=== PATIENT | male | born 1975 | race Hispanic/Latino ===

== ENCOUNTER 2025-03-19 22:43 | Inpatient (IN) | payer BC, SELFPAY ==
[2025-03-19 14:38] VITALS: BP 154/91
[2025-03-19 15:03] LABS: % Basophils 1.3 % (0-2); % Eosinophils 2.2 % (0-6); % Lymphocytes 31.9 % (20.5-51.1); % Monocytes 5.2 % (1.7-9.3); % Neutrophils 58.4 % (42.2-75.2); Absolute Basophils 0.1 10^3/uL (0-0.2); Absolute Eosinophils 0.2 10^3/uL (0-0.7); Absolute Immature Granulocytes 0.1 10^3/uL (0-0.05); Absolute Lymphocytes 2.3 10^3/uL (1.2-3.4); Absolute Monocytes 0.4 10^3/uL (0.1-0.6); Absolute Neutrophils 4.2 10^3/uL (1.4-6.5); Hematocrit 43.9 % (39.0-52.0); Hemoglobin 14.9 g/dL (13.0-18.0); Mean Corp Hgb Conc. 33.9 g/dL (33.0-37.0); Mean Corpuscular Hgb 29.6 pg (27.0-31.0); Mean Corpuscular Volume 87.1 fL (80.0-94.0); Mean Platelet Volume 8.8 fL (7.4-10.4); Nucleated Red Blood Cells % 0 % (-); Platelet Count 272 10^3/uL (130-400); Red Blood Cell Count 5.04 10^6/uL (4.70-6.10); Red Cell Dist. Width 12.7 % (11.5-14.5); White Blood Cell Count 7.2 10^3/uL (4.8-10.8)
[2025-03-19 15:13] LABS: Urine Albumin 2+ (Neg - Trace); Urine Bilirubin Negative (Negative); Urine Character Clear (Clear); Urine Color Yellow; Urine Glucose Negative (Negative); Urine Ketone Negative (Negative); Urine Leukocyte Negative (Negative); Urine Nitrite Negative (Negative); Urine Occult Blood 4+ (Negative); Urine Urobilinogen Negative (Neg - 1+)
[2025-03-19 15:30] LABS: ALT (SGPT) 49 U/L (0-50); AST (SGOT) 30 U/L (17-59); Albumin 4.6 g/dl (3.5-5.0); Alkaline Phosphatase 53 U/L (38-126); Blood Urea Nitrogen 16 mg/dl (9-20); Calcium 9.8 mg/dl (8.4-10.2); Carbon Dioxide 30 mmol/L (22-30); Chloride 102 mmol/L (98-107); Glucose 109 mg/dl (70-99); Lipase 1116 U/L (23-300); Potassium 4.4 mmol/L (3.5-5.1); Sodium 142 mmol/L (135-145); Total Bilirubin 0.8 mg/dl (0.2-1.3); Total Protein 7.9 g/dl (6.3-8.2); eGFR > 60.00
[2025-03-19 15:32] LABS: Urine Squamous Cell 0-2 /LPF (Few)
[2025-03-19 15:33] LABS: Urine Red Blood Cell 80-90 /HPF (0-2); Urine White Cell 0-2 /HPF (0-5)
[2025-03-19 17:04] VITALS: BP 149/83
[2025-03-19 20:10] VITALS: BP 141/81
--- NOTE | 2025-03-19 20:39 | ED.GENMED ---
History of Present Illness
<Judie Kay NP - Last Filed: 03/19/25 22:31>
General
Chief Complaint: Flank Pain
Source: patient
Exam Limitations: none
Time Seen by Provider: 03/19/25 16:21
Nursing documentation reviewed up to this point in time: agreed with
History of Present Illness
History of Present Illness:
Patient to ED wtih complaint of bilateral flank pain. History of kidney stones, states pain is similar. Denies fever/chills, n/v/d. No difficulty passing urine Brought self to ED for eval.
Past History
<Judie Kay NP - Last Filed: 03/19/25 22:31>
Past History
ED Past Medical History: Hypercholesterolemia, Psychiatric (anxiety) and Other (kidney stones, fatty liver)
ED Past Surgical History: Urological (stents)
Social History
Tobacco: Non-smoker
Alcohol: None
Drug: Marijuana (medical)
Review of Systems
<Judie Kay NP - Last Filed: 03/19/25 22:31>
Review of Systems
Allergies reviewed?: Yes
All Other Systems: ROS reviewed and negative except as documented in HPI and ROS
Constitutional: Reports no symptoms
EENT: Reports no symptoms
Respiratory: Reports no symptoms
Cardiac: Reports no symptoms
ABD/GI: Reports abdominal pain (lower abd. pain)
: Reports flank pain (bilateral flank pain radiating to lower abd.)
Musculoskeletal: Reports no symptoms
Skin: Reports no symptoms
Neurological: Reports no symptoms
Psychiatric: Reports no symptoms
Phy Exam
<Judie Kay NP - Last Filed: 03/19/25 22:31>
General Physical Exam
General Presentation: mild distress
General age: appears stated age
General Skin: warm and dry
General Habitus: normal
General Mental: alert
Cardiovascular Exam
Cardiovascular Exam: regular rate/rhythm and no edema
Pulmonary Exam
Pulmonary Exam: lungs clear and no respiratory distress
Gastrointestinal Exam
Gastrointestinal Exam: normal bowel sounds, non tender, soft, no organomegaly, no pulsatile mass and non distended
Musculoskeletal Exam
Musculoskeletal Exam: full ROM and neuro vasc intact
Skin Exam
Skin Exam: normal color, warm/dry and no rash
Psychiatric Exam
Psychiatric Exam: normal mood/affect
Course
<Judie Kay NP - Last Filed: 03/19/25 22:31>
Orders/Labs/Results
Orders:
Orders
03/19/25 14:55
Complete Blood Count/With Diff Urgent
Comprehensive Metabolic Panel Urgent
Lipase Urgent
Urine Culture Reflexed from UA [Urinalysis Reflex To Culture] Urgent
Date Specimen was Collected: 03/19/25
Time Specimen was Collected: 14:42
Urine Microscopic Reflex Cult Urgent
03/19/25 17:08
CT Abd/pelvis W Iv Cont Urgent
Comment:
Reason For Exam: bilateral flank pain, abd. pain, elevated lipase
03/19/25 21:11
UROLOGY CONSULT Urgent
Consulting Provider: Gadiel Fox
Was physician already notified: Yes
03/19/25 21:16
0.9% Sodium Chloride 1000 ml [Nss] 1,000 ml IV BOLUS
03/19/25 21:49
Admit/Transfer Patient As Directed
Co-Sign Provider:
Level of Care: Inpatient admission
Assign to:: Medical/Surgical
Physician / Group: Silvia Pickens
Diagnosis: left ureteral calculus, moderate left hydroureteronephrosis
Reason for Hospitalization: left ureteral calculus, moderate left hydroureteronephrosis
Expected length of stay greater than two midnights?: Yes
ELOS- Estimated Length of Stay in days: 3
I certify the patient meets the requirements for IP care: Yes
PRN Pain Medication Management As Directed
May give lesser potent ordered pain med per pt: Yes
preference::
Protocol:: Medication orders for pain may be administered in a
manner that supports deferring to patient preference
when the pt is:
- Requesting an ordered lesser potent pain medication.
Least to most potent pain medications are defined
as: acetaminophen < NSAID < tramadol < opioids
(morphine, oxycodone, hydromorphone).
- Requesting a lesser dose of the same medication IF
ORDERED.
- Requesting a less intrusive route of administration
if both routes are prescribed by the provider (PO <
IV).
03/19/25 21:51
Code Status As Directed
Resuscitation Status: Full Code
03/19/25 23:00
Flush (0.9% Sodium Chloride) [Flush (Nss)] See Dose Instructions IV PER PROTOCOL
Abnormal Lab Results
03/19/25
14:55
Abs Immat Gran (auto) 0.1 H 10^3/uL
(0-0.05)
Immature Gran % 1.0 H %
(0-0.5)
Glucose 109 H mg/dl
(70-99)
Lipase 1116 H* U/L
(23-300)
Ur Occult Blood Reflex 4+ A
(Negative)
Urine RBC 80-90 A /HPF
(0-2)
Urine Albumin (Reflex) 2+ A
(Neg - Trace)
03/19/25 14:55
03/19/25 14:55
Vital Signs
Initial and Last Documented VS:
Initial Vital Signs
Temp Pulse Resp BP Pulse Ox
98.2 F 71 20 154/91 99
03/19/25 14:38 03/19/25 14:38 03/19/25 14:38 03/19/25 14:38 03/19/25 14:38
Last Documented Vital Signs
Temp Pulse Resp BP Pulse Ox
98.2 F 75 16 125/81 95
03/19/25 14:38 03/19/25 22:01 03/19/25 22:01 03/19/25 22:01 03/19/25 22:01
Rocklt;Alex Montemayor DO - Last Filed: 03/19/25 20:49>
Orders/Labs/Results
Orders:
Orders
03/19/25 14:55
Complete Blood Count/With Diff Urgent
Comprehensive Metabolic Panel Urgent
Lipase Urgent
Urine Culture Reflexed from UA [Urinalysis Reflex To Culture] Urgent
Date Specimen was Collected: 03/19/25
Time Specimen was Collected: 14:42
Urine Microscopic Reflex Cult Urgent
03/19/25 17:08
CT Abd/pelvis W Iv Cont Urgent
Comment:
Reason For Exam: bilateral flank pain, abd. pain, elevated lipase
03/19/25 21:11
UROLOGY CONSULT Urgent
Consulting Provider: Gadiel Fox
Was physician already notified: Yes
03/19/25 21:16
0.9% Sodium Chloride 1000 ml [Nss] 1,000 ml IV BOLUS
03/19/25 21:49
Admit/Transfer Patient As Directed
Co-Sign Provider:
Level of Care: Inpatient admission
Assign to:: Medical/Surgical
Physician / Group: Silvia Pickens
Diagnosis: left ureteral calculus, moderate left hydroureteronephrosis
Reason for Hospitalization: left ureteral calculus, moderate left hydroureteronephrosis
Expected length of stay greater than two midnights?: Yes
ELOS- Estimated Length of Stay in days: 3
I certify the patient meets the requirements for IP care: Yes
PRN Pain Medication Management As Directed
May give lesser potent ordered pain med per pt: Yes
preference::
Protocol:: Medication orders for pain may be administered in a
manner that supports deferring to patient preference
when the pt is:
- Requesting an ordered lesser potent pain medication.
Least to most potent pain medications are defined
as: acetaminophen < NSAID < tramadol < opioids
(morphine, oxycodone, hydromorphone).
- Requesting a lesser dose of the same medication IF
ORDERED.
- Requesting a less intrusive route of administration
if both routes are prescribed by the provider (PO <
IV).
03/19/25 21:51
Code Status As Directed
Resuscitation Status: Full Code
03/19/25 23:00
Flush (0.9% Sodium Chloride) [Flush (Nss)] See Dose Instructions IV PER PROTOCOL
Abnormal Lab Results
03/19/25
14:55
Abs Immat Gran (auto) 0.1 H 10^3/uL
(0-0.05)
Immature Gran % 1.0 H %
(0-0.5)
Glucose 109 H mg/dl
(70-99)
Lipase 1116 H* U/L
(23-300)
Ur Occult Blood Reflex 4+ A
(Negative)
Urine RBC 80-90 A /HPF
(0-2)
Urine Albumin (Reflex) 2+ A
(Neg - Trace)
03/19/25 14:55
03/19/25 14:55
Vital Signs
Initial and Last Documented VS:
Initial Vital Signs
Temp Pulse Resp BP Pulse Ox
98.2 F 71 20 154/91 99
03/19/25 14:38 03/19/25 14:38 03/19/25 14:38 03/19/25 14:38 03/19/25 14:38
Last Documented Vital Signs
Temp Pulse Resp BP Pulse Ox
98.2 F 75 16 125/81 95
03/19/25 14:38 03/19/25 22:01 03/19/25 22:01 03/19/25 22:01 03/19/25 22:01
<Judie Kay LEAD PRESSER - Last Filed: 03/19/25 22:31>
*Radiology
Radiology exam reviewed: radiology read reviewed
*Pulse Oximetry
Patient hypoxic: no
*Critical Care Note
Total Time (30-74mins, 75-104mins- exclusive of procedures): Not Applicable
<Judie Kay NP - Last Filed: 03/19/25 22:31>
Update Note
Update Note:
Patient to ED with complaint of bilateral flank pain for the past week. Prior history of kidney stones and states pain is similar. Denies fevers/chills, n/v. CT tonight reveals left 1.4cm mid ureteral stone with moderate hydronephrosis.
Urinalyis without evidence of UTI. BUN/creat normal. Lipase 1100 noted. No abdominal pain. No history of pancreatitis. Prior diagnosis of fatty liver. No pancreatitis noted on CT. Case discussed with Dr. Montemayor who also evaluated this
patient. Agrees with findings. Dr. Fox consulted. Requets admission to hospitalist, NPO after midnight and plan for OR tomorrow pending medical clearance for elevated Lipase.
ED Attending Note
<Judie Kay NP - Last Filed: 03/19/25 22:31>
-
Portions of this chart may have been created with voice recognition software.� Occasional wrong word or��sound alike� substitutions may have occurred due to the inherent limitations of voice recognition software.
<Alex Montemayor, - Last Filed: 03/19/25 20:49>
ED Attending Note
Patient seen and examined by attending physician: Yes
I performed the substantive portion of visit, reviewed & personally made and approve the management plan that is documented in note by myself or MARIA EUGENIA.: Yes
ED Attending Note:
I agree with Judie's note.
Pt with left flank pain radiating to the groin. + nausea. No fever.
Abd: soft, no epigastric tenderness. + L CVA tenderness to percussion.
Patient's labs show a normal white count, normal renal function and chemistries. LFTs are normal but lipase is surprisingly elevated at 1116. Urine shows hematuria but no findings to suggest an acute infection. CT shows a large stone in the left
mid ureter. I will discuss stone with urology. I suspect his lipase is elevated as a secondary effect of his stone and perhaps nausea etc. Recommend repeat lipase in [address] scan of the abdomen pelvis does not show any evidence of
pancreatitis. If lipase remains elevated patient likely will require an MRCP.
Discharge Plan
Departure
Patient Disposition: Admit
Date of Disposition: 03/19/25
Time of Disposition: 21:11
Presentation/result/management discussed w/ accepting MD/DO: Hospitalist
Patient with high blood pressure during this ER visit?: No
Condition: Fair
Covid-19: Not Applicable
Discharge Problem:
Kidney stone
Prescriptions:
No Action
ibuprofen [Advil] 200 mg Tablet
400 mg PO Q8HPRN PRN (Reason: shoulder pain)
duloxetine 60 mg Capsule,Delayed Release(Dr/Ec)
60 mg PO DAILY
Medical Marijuana
2 - 3 gummy PO HSPRN PRN (Reason: sleep)
Referrals:
Armen Garza DO [Family Provider] -
Interventions
Interventions:
*Risk Screen - Suicide Last Done: 03/19/25 17:04
*General Assessment Last Done: 03/19/25 14:38
*Neglect/Abuse Screening Last Done: 03/19/25 17:04
*ED COVID-19 Vaccine History Last Done: 03/19/25 16:49
IS-Szurff-Yltzqpiuja Assessment Last Done: 03/19/25 17:04
ED-Male Genitourinary Assessment Last Done: 03/19/25 17:04
Discharge Date and Time
Print Language: SOUTH SUDANESE
[2025-03-19] MEDS: NSS 1000 IV ×2 (21:24→23:09)
--- NOTE | 2025-03-19 21:24 | HPS.HSE ---
Family Physician
-
Family Physician: Armen Garza
Chief Complaint
-
radiating left flank pain
History of Present Illness
Patient is a 50-year-old male with past medical history significant for hypercholesteremia, anxiety and Hx kidney stones who presented to [facility] ED for evaluation of left flank pain. Patient reports left flank pain that radiates across abdomen and
around back to right flank. Flank pain started Wednesday, he also noticed some blood in urine Wednesday. He reports increasing his fluids thinking he would pass stone. Pain continued, no further episodes of hematuria since Wednesday. Patient denies any
fever, chills, nausea, vomiting, diarrhea or dysuria.
Medical History
Past Medical History
Past Medical History: Reports Other
Additional Past Medical History:
hypercholesteremia
anxiety
Hx kidney stones
Hx fatty liver
Past Surgical History: Reports Other
Additional Past Surgical History:
ureteral stent
Social History
Tobacco: Non-smoker
Alcohol: None
Drug: Marijuana (medical marijuana, utilizes edibles and smokes daily for anxiety )
Personal:
Living: With Family
Employment: Employed
Family History
Family History: Not pertinent
Allergies / Home Medications
Allergies reflects when Allergies were last updated in [employer].
Home Medications with original date entered in [employer]
Allergy/Medication List:
Allergies
Allergy/AdvReac Type Severity Reaction Status Date / Time
No Known Allergies Allergy Unverified 03/19/25 14:38
Home Medications
Medical Marijuana 2 - 3 gummy PO HSPRN PRN sleep 03/19/25
duloxetine 60 mg capsule,delayed release 60 mg PO DAILY 03/19/25
ibuprofen 200 mg tablet (Advil) 400 mg PO Q8HPRN PRN shoulder pain 03/19/25
Review of Systems
-
History Source: Patient
Constitutional: Reports No Symptoms
EENT: Reports No Symptoms
Respiratory: Reports No Symptoms
Cardiac: Reports No Symptoms
Abdomen/GI: Reports No Symptoms
: Reports Flank Pain (radiating 'all the way around abdomen and back') and Bleeding (one episdoe of hematuria Wednesday)
Musculoskeletal: Reports No Symptoms
Skin: Reports No Symptoms
Neurological: Reports No Symptoms
Endocrine: Reports No Symptoms
Hematologic/Lymphatic: Reports No Symptoms
Psych: Reports No Symptoms
Physical Exam
Vital Signs
Vital Signs
Temp Pulse Resp BP Pulse Ox
98.2 F 66 16 141/81 96
03/19/25 14:38 03/19/25 20:10 03/19/25 20:10 03/19/25 20:10 03/19/25 20:10
Physical Exam
General: Well Developed, Well Nourished, No Apparent Distress, Comfortable and Conversant
HEENT: NormoCephalic, Moist mucous membranes, Atraumatic, [place] Conjunctivae, Nose Appears Normal and Ears Appear Normal
Respiratory: Clear
Cardiac: S1/S2 and Regular Rhythm
Breast: Deferred by me
GI: Soft, Non Tender, Non Distended and Normal Bowel Sounds; No Organomegaly
Rectal: Deferred by Provider
Genito-urinary: Costovertebral angle tend
Musculoskeletal: No Clubbing, No Cyanosis and No Edema
Skin: Warm and IV/Catheter Site
Neuro: Awake, Alert, AO x 3 and Nonfocal/grossly intact
Psych: Calm and Intact Judgment/Insight
Laboratory Results
-
03/19/25 14:55
03/19/25 14:55
Laboratory Results
Total Bilirubin 0.8 mg/dl (0.2-1.3) 03/19/25 14:55
AST 30 U/L (17-59) 03/19/25 14:55
ALT 49 U/L (0-50) 03/19/25 14:55
Alkaline Phosphatase 53 U/L (38-126) 03/19/25 14:55
Lipase 1116 U/L (23-300) H* 03/19/25 14:55
Data Reviewed
-
CT Scan: Report Reviewed by me (Abd/Pel CT: 1.4 cm mid left ureteral calculus with associated moderate left hydroureteronephrosis.)
Lab Data: Labs Reviewed by me (Lipase 1116)
Impression/Plan
-
IMPRESSION/PLAN:
#left radiating flank pain
#Hx kidney stones
bilateral flank pain x1 week
Abd/Pel CT: 1.4 cm mid left ureteral calculus with associated moderate left hydroureteronephrosis.
- Admit to med/surg
- Consult Urology
- NPO after midnight
- IVF
- supportive care
#Hx fatty liver
lipase 1116
denies any abdominal pain
no pancreatitis on CT
- follow up out patient to repeat lipase
#anxiety
- continue out patient medical marijuana
#hypercholesteremia
Code status: full code
DVT prophylaxis: SCDs
--- NOTE | 2025-03-19 21:40 | W.PN.UPDATE ---
Update Note
Progress Note Update
This is an addendum to the H&P written by Charline Espinoza on 03/19/2025. Patient seen and examined independently with ROAD MIXER OPERATOR.
50-year-old male past medical history of anxiety, hypercholesteremia, nephrolithiasis s/p ureteral stents bilterally previously, fatty liver, presenting with left flank pain, blood in urine, chills. No feversor nausea or vomiting.
Vital signs normal.
Labs show lipase of 1000.
CT abdomen pelvis shows 1.4 cm mid left ureteral calculus with associated moderate left hydroureteronephrosis. No pancreatic inflammation seen.
Patient with obstructive left ureteral calculus. No evidence of acute pancreatitis.
N.p.o. past midnight. IV fluids. Urology to take patient to OR tomorrow. Pain control.
[2025-03-19 22:01] VITALS: BP 125/81; BMI 32.4
[2025-03-19 22:45] VITALS: BMI 31.9
[2025-03-19] MEDS: FLOMAX 0.4 MG PO (23:09)
[2025-03-19 23:19] VITALS: BP 141/94
--- NOTE | 2025-03-19 23:38 | TRANSFER ---
Received pt from ED at 2245 w dx of left ureteral calculus with associated moderate left hydroureteronephrosis - pt denied pain, however, c/o some mild discomfort. VS WNL. Assessment as documented. Reviewed plan of care with pt. Call mejia within
reach, safety maintained.
[2025-03-20] VITALS (12 sets, daily range): BP systolic 103–155; BP diastolic 65–90
[2025-03-20 06:57] LABS: Hematocrit 37.6 % (39.0-52.0); Hemoglobin 12.8 g/dL (13.0-18.0); Mean Corpuscular Hgb 29.6 pg (27.0-31.0); Mean Corpuscular Volume 86.8 fL (80.0-94.0); Mean Platelet Volume 9.3 fL (7.4-10.4); Platelet Count 238 10^3/uL (130-400); Red Blood Cell Count 4.33 10^6/uL (4.70-6.10); Red Cell Dist. Width 12.6 % (11.5-14.5); White Blood Cell Count 6.3 10^3/uL (4.8-10.8)
[2025-03-20 07:18] LABS: Blood Urea Nitrogen 15 mg/dl (9-20); Carbon Dioxide 24 mmol/L (22-30); Chloride 112 mmol/L (98-107); Estimated Creatinine Clearance 114 ml/min; Glucose 97 mg/dl (70-99); Potassium 4.6 mmol/L (3.5-5.1); Sodium 143 mmol/L (135-145); eGFR > 60.00
[2025-03-20] MEDS: NSS 1000 IV ×2 (08:18→17:43)
[2025-03-20] MEDS: CYMBALTA DELAYED RELEASE 60 MG PO (08:18)
--- NOTE | 2025-03-20 10:22 | W.PN.URO.CBU ---
Today's Communication / Plan
-
for op room today
Assessment / Plan
-
impasable stone and elevted lipase will take to op room for stone today
Diagnosis
-
Date of Service: March 20, 2025
-
Patient Diagnosis:
14mm leftmid ureteral stone hydro and elevtated 1100lipase with nl pancreas and renal ftn
Post Op Day:
Subjective
-
colic no fever ghills
Objective
-
Vital Signs
Temp Pulse Resp BP Pulse Ox
97.7 F 76 16 122/73 98
03/20/25 07:12 03/20/25 07:12 03/20/25 07:12 03/20/25 07:12 03/20/25 07:12
Intake and Output
03/19/25 03/20/25 03/21/25
06:59 06:59 06:59
Intake Total 1090 / 1090
Output Total 850 / 850
Balance 240 / 240
Intake:
Oral fluids 240 / 240
IV fluids (Total) 850 / 850
Output:
Urine, Voided 850 / 850
Laboratory Results
03/20/25 06:18
03/20/25 06:18
Review of Systems
-
: Flank Pain
Physical Exam
-
General - well developed, well nourished, no acute distress
Chest - clear bilaterally
Abdomen - soft, non-tender, positive bowel sounds, no CVAT, no incisional pain or distention
Genitalia - normal
Rectal - normal
Skin - warm & dry with no rash
Neuro - AOx3, no motor deficits
Extremities - no clubbing, no cyanosis, no edema
Incision - clean, dry
Dressing - clean, dry, intact
Care Review
Data Reviewed
Discussed with: Nursing
CT Scan: Image Pers Reviewed
--- NOTE | 2025-03-20 13:37 | W.SUR.POST ---
Surgical Immediate Post Op
Note
Pre Op Diagnosis: left uretral stone with obstruction 14 mm
Post Op Diagnosis: same
Procedure Performed: left uretroscopy laser basket extraction stent
Primary Surgeon: jaleesa
Secondary Surgeons:
Anesthesia: general dr leo
Estimated Blood Loss: 2cc
Fluids: nss
Drains/Shunts: 6 fr 24 cm jj stent
Specimens/Cultures: stone
Doppler/Duplex/Angio (Y/N):
Complications: 0
Operative Findings: lg stone appeared to be uric acid mid ureter
[2025-03-20] MEDS: Pyridium 200 MG PO (14:02)
[2025-03-20] MEDS: FLOMAX 0.4 MG PO ×2 (14:02→21:44)
--- NOTE | 2025-03-20 14:15 | PTCARENOTE ---
Pt received from the PACU via bed. Transport was w/o incident. Pt is Awake, drowsy, able to make needs known. Pt denies pain or nausea at this time. Pt instructed on plan of care, Pt verbalized understanding of instructions. VSS, Pt is afebrile.
Call mejia is within reach.
--- NOTE | 2025-03-20 16:22 | W.DS.TRANS ---
DC Summary - Machine Attendant
-
Discharge Instructions:
Discharge Diagnosis/Procedures left uretral stone with obstruction 14 mm
Diet Regular
Instructions:
Stand-Alone Forms:
Changes to Home Medications: Yes
Discharge Medications:
DC Medications w/original date entered in [employer]
Medical Marijuana 2 - 3 gummy PO HSPRN PRN sleep 03/19/25
duloxetine 60 mg capsule,delayed release 60 mg PO DAILY 03/19/25
ibuprofen 200 mg tablet (Advil) 400 mg PO Q8HPRN PRN shoulder pain 03/19/25
levofloxacin 500 mg tablet 500 mg PO DAILY #4 tabs 03/20/25
Home Medication Changes
Levofloxacin
Pending Results: No
[2025-03-20] MEDS: LEVAQUIN 500 MG PO (17:44)
[2025-03-20] MEDS: DILAUDID 0.5 MG IV ×2 (17:48→21:44)
[2025-03-21] MEDS: NSS 1000 IV (02:05)
[2025-03-21 03:12] VITALS: BP 122/71
[2025-03-21 07:32] LABS: % Basophils 0.3 % (0-2); % Eosinophils 0.1 % (0-6); % Immature Granulocytes 0.6 % (0-0.5); % Lymphocytes 20.8 % (20.5-51.1); % Monocytes 7.2 % (1.7-9.3); Absolute Immature Granulocytes 0.1 10^3/uL (0-0.05); Absolute Monocytes 0.7 10^3/uL (0.1-0.6); Absolute Neutrophils 6.7 10^3/uL (1.4-6.5); Hematocrit 38.3 % (39.0-52.0); Hemoglobin 13.1 g/dL (13.0-18.0); Mean Corp Hgb Conc. 34.2 g/dL (33.0-37.0); Mean Corpuscular Hgb 29.8 pg (27.0-31.0); Mean Platelet Volume 9.2 fL (7.4-10.4); Nucleated Red Blood Cells % 0 % (-); Platelet Count 247 10^3/uL (130-400); Red Cell Dist. Width 12.8 % (11.5-14.5); White Blood Cell Count 9.5 10^3/uL (4.8-10.8)
[2025-03-21 08:00] VITALS: BP 120/84
[2025-03-21 08:26] LABS: Blood Urea Nitrogen 14 mg/dl (9-20); Calcium 9.2 mg/dl (8.4-10.2); Carbon Dioxide 24 mmol/L (22-30); Chloride 110 mmol/L (98-107); Estimated Creatinine Clearance 104 ml/min; Glucose 98 mg/dl (70-99); Potassium 4.4 mmol/L (3.5-5.1); Sodium 144 mmol/L (135-145); eGFR > 60.00
[2025-03-21] MEDS: CYMBALTA DELAYED RELEASE 60 MG PO (08:55)
[2025-03-21] MEDS: LEVAQUIN 500 MG PO (08:55)
[2025-03-21] MEDS: Pyridium 200 MG PO (08:58)
--- NOTE | 2025-03-21 09:56 | CM ---
Patient stable for d/c today. Initial assessment completed. Patient is a 50-year-old male with past medical history significant for hypercholesteremia, anxiety and Hx kidney stones who presented to [facility] ED for evaluation of left flank pain. Patient
had left ureteroscopy, laser lithotripsy of stone, stone extraction with basket, left double-J stent placement yesterday.
Patient resides w/ spouse and daughter w/ special needs in a 2STH- 4 steps to enter. Patient is independent w/ ambulating, no device required. Independent w/ ADLs. Patient has shower chair in the home but is used for his daughter, does not
personally use. No SNF/HC hx reported.
OP therapy in the past for a back injury.
Address, point of contact and insurance verified
PCP: Armen Garza
[facility]
Spouse will transport home
Plan: Home; no needs
[2025-03-21 11:57] LABS: Lipase 704 U/L (23-300)
[2025-03-21 12:45] VITALS: BP 133/70
--- NOTE | 2025-03-21 13:10 | W.PN.HOSP.TC ---
Today's Communication/Plan
-
Discharge
Assessment / Plan
Assessment / Plan
Impression/plan:
Left-sided obstructive renal stone
Status post cystoscopy with stone manipulation and stent placement.
Stable renal function.
Urinating.
Afebrile.
Continue to complete course of antibiotics/Levaquin
Outpatient follow-up with urology for stent retrieval
Outpatient follow-up with primary physician�nephrology for recurrent nephrolithiasis workup.
Nonspecific lipase elevation.
Clinically and radiologically with no evidence for acute pancreatitis.
Anticipated Discharge: Today
Subjective/Interval History
-
Date of Service: March 21, 2025
Objective Data
-
Labs:
Laboratory Results
03/21/25
06:40
WBC 9.5
Hgb 13.1
Hct 38.3 L
Plt Count 247
Sodium 144
Potassium 4.4
Chloride 110 H
Carbon Dioxide 24
BUN 14
Creatinine 1.1
Glucose 98
Calcium 9.2
Vital Signs:
Vital Signs
Temp Pulse Resp BP Pulse Ox
98.5 F 70 16 133/70 98
03/21/25 12:45 03/21/25 12:45 03/21/25 12:45 03/21/25 12:45 03/21/25 12:45
I&O
03/20/25 03/21/25 03/22/25
06:59 06:59 06:59
Intake Total 1090 / 1090 3150 / 3150
Output Total 850 / 850
Balance 240 / 240 3150 / 3150
Physical Exam
-
General: Well Developed and No Apparent Distress
HEENT: Normocephalic, Atraumatic and Moist Mucous Membranes
Respiratory: Clear to Auscultation
Cardiac: Regular Rhythm and S1/S2; Negative Murmur, Rub or Gallop
GI: Soft, Nontender, Nondistended and Normal Bowel Sounds; Negative Organomegaly
Rectal: Deferred by Provider
Musculoskeletal: No Clubbing, No Cyanosis and No Edema
Skin: Negative Rash
Neuro: Nonfocal/Grossly Intact
== END 2025-03-21 13:23 | disposition home or self-care (01) | DRG 661 ==
LOC: 2 SOUTH 22:43
PROVIDERS: Emergency Medicine; Nurse Practitioner Family; ADMITTING PHYSICIAN Hospitalist; ATTENDING PHYSICIAN Internal Medicine; CONSULT PHYSICIAN Specialist; EMERGENCY PHYSICIAN Emergency Medicine; FAMILY PHYSICIAN Family Medicine
PROC: 0T778DZ Dilation of Left Ureter with Intraluminal Device, Via Natural or Artificial Opening Endoscopic (ICD-10-PCS; 2025-03-19)
PROC: 0TC78ZZ Extirpation of Matter from Left Ureter, Via Natural or Artificial Opening Endoscopic (ICD-10-PCS; 2025-03-19)
DX: N13.2 Hydronephrosis with renal and ureteral calculous obstruction (principal); E78.00 Pure hypercholesterolemia, unspecified; F41.9 Anxiety disorder, unspecified; Z87.442 Personal history of urinary calculi
CPT/HCPCS: 74018; 74177; 76000; 80048; 80053; 81003; 81015; 82365; 83690; 85025; 85027; 96360; 99285; Q9967